=== PATIENT | female | born 1985 | race Hispanic/Latino ===

== ENCOUNTER 2021-08-15 09:46 | Outpatient (CLI) | payer OTHER ==
[2021-08-15 17:26] LABS: SARS-CoV-2 PCR by NAA Not Detected (NotDetected)
== END 2021-08-15 09:47 | disposition home or self-care (01) ==
LOC: CSHLAB 09:46
PROVIDERS: ATTEND Family Medicine
DX: Z01.812 Encounter for preprocedural laboratory examination (principal); Z20.822 Contact with and (suspected) exposure to COVID-19
CPT/HCPCS: U0003; U0005

== ENCOUNTER 2021-08-19 15:03 | Inpatient (IN) | payer MEDICAID, OTHER, SELFPAY ==
[2021-08-19 15:59] VITALS: BMI 35.6
[2021-08-19] MEDS ORDERED: Ondansetron PF 4 MG/2 ML Vial IVP PRN ×2 (16:17→19:24)
[2021-08-19] MEDS ORDERED: Famotidine/PF 20 mg/2ml Vial SLOW IVP PRN (16:17)
[2021-08-19] MEDS ORDERED: hydrALAZINE 20 MG/ML VIAL SLOW IVP PRN (16:17)
[2021-08-19] MEDS ORDERED: Bicitra 30 ML UDCUP PO PRN (16:17)
[2021-08-19] MEDS ORDERED: Promethazine HCl 25 MG/ML VIAL IM PRN ×2 (16:17→19:24)
[2021-08-19] MEDS ORDERED: Lactated Ringer's 1,000 ML IV SCH (16:30)
[2021-08-19] MEDS ORDERED: CEFAZOLIN 2 GM in Premix Bag 1 BAG IVPB SCH (16:30)
[2021-08-19 16:43] LABS: Hemoglobin 11.3 g/dL (12.0-15.5); Mean Corpuscular HGB CONC 34.9 g/dL (32.0-36.0); Mean Corpuscular Hemoglobin 33.1 pg (27.0-33.0); Mean Platelet Volume 11.6 fl (7.4-10.4); Platelet Count 132 10x3/uL (150-450); RBC Distribution Width 13.6 % (11.5-14.5); Red Blood Cell (RBC) Count 3.41 10x6/uL (3.90-5.03); White Blood Cell (WBC) Count 7.4 10x3/uL (3.5-10.5)
[2021-08-19] MEDS ORDERED: Morphine PF 10 MG/10 ML VIAL ONE (17:08)
[2021-08-19] MEDS ORDERED: Phenylephrine 40 MG/NS 250 ML 250 ML ONE (17:08)
[2021-08-19] MEDS ORDERED: Ondansetron PF 4 MG/2 ML Vial ONE (17:08)
[2021-08-19] MEDS ORDERED: Oxytocin 10 UNITS/ML VIAL ONE ×2 (17:08→18:15)
[2021-08-19] MEDS ORDERED: Dexamethasone 4 mg/ml Vial ONE (17:08)
[2021-08-19 17:11] LABS: Syphilis Antibody Nonreactive (Nonreactive); Syphilis Antibody Index 0.07 S/CO (<1.00 Non-Reactive)
[2021-08-19 17:49] LABS: Hep B Surf Ag Non-Reactive S/CO (NonReactive)
[2021-08-19 17:54] LABS: HBSAg Index 0.18 S/CO (0-0.99)
[2021-08-19] MEDS ORDERED: Hydrocerin (Eucerin) Cream 120 gm Jar TOP PRN (19:24)
[2021-08-19] MEDS ORDERED: Ketorolac Tromethamine 30 MG/ML VIAL IVP PRN (19:24)
[2021-08-19] MEDS ORDERED: Fentanyl 100 MCG/2 ML VIAL SLOW IVP PRN (19:24)
[2021-08-19] MEDS ORDERED: Ondansetron HCl/PF 4 MG/2 ML Vial IVP PRN (19:24)
[2021-08-19] MEDS ORDERED: Meperidine HCl/PF 25 MG/ML VIAL SLOW IVP PRN (19:24)
[2021-08-19] MEDS ORDERED: L&D-Morphine 4 MG/ML VIAL SLOW IVP PRN (19:24)
[2021-08-19] MEDS ORDERED: Naloxone HCl 0.4 mg/ml Vial IVP PRN ×2 (19:24)
[2021-08-19] MEDS ORDERED: Promethazine HCl 25 MG SUPP PR PRN (19:24)
[2021-08-19] MEDS ORDERED: Naloxone HCl 0.4 mg/ml Vial IV PRN (19:24)
[2021-08-19] MEDS ORDERED: diphenhydrAMINE 50 MG/ML VIAL IVP PRN (19:24)
[2021-08-19] MEDS ORDERED: Ketorolac Tromethamine 30 MG/ML VIAL IVP SCH (19:30)
[2021-08-19] MEDS ORDERED: Communication Order-Pharmacy FS SCH (19:30)
[2021-08-20] MEDS ORDERED: Promethazine HCl 25 MG/ML VIAL IM PRN (00:21)
[2021-08-20] MEDS ORDERED: Boostrix 0.5 ML (Tdap) VIAL IM ONE (00:21)
[2021-08-20] MEDS ORDERED: Lanolin Ointment 7 GM TUBE TOP PRN (00:21)
[2021-08-20] MEDS ORDERED: diphenhydrAMINE 25 MG CAP PO PRN (00:21)
[2021-08-20] MEDS ORDERED: Bisacodyl 10 MG SUPP PR PRN (00:21)
[2021-08-20] MEDS ORDERED: Ondansetron PF 4 MG/2 ML Vial IVP PRN (00:21)
[2021-08-20] MEDS ORDERED: hydrALAZINE 20 MG/ML VIAL SLOW IVP PRN (00:21)
[2021-08-20] MEDS: Ketorolac Tromethamine 30 MG/ML VIAL IVP SCH ×3 (01:59→14:29)
[2021-08-20] MEDS: Ferrous Sulfate 325 MG TAB PO SCH ×3 (07:22→22:01)
[2021-08-20] MEDS ORDERED: Meperidine HCl/PF 25 MG/ML VIAL IM PRN (07:30)
[2021-08-20 07:37] LABS: Hemoglobin 9.4 g/dL (12.0-15.5); Mean Corpuscular HGB CONC 34.9 g/dL (32.0-36.0); Mean Corpuscular Hemoglobin 33.3 pg (27.0-33.0); Mean Corpuscular Volume 95.4 fl (81.6-98.3); Mean Platelet Volume 12.3 fl (7.4-10.4); Platelet Count 126 10x3/uL (150-450); RBC Distribution Width 13.8 % (11.5-14.5); Red Blood Cell (RBC) Count 2.82 10x6/uL (3.90-5.03); White Blood Cell (WBC) Count 8.1 10x3/uL (3.5-10.5)
[2021-08-20] MEDS: Prenatal Vitamin 1 TAB PO SCH (08:17)
[2021-08-20] MEDS: Docusate Calcium (SURFAK) 240 MG CAP PO SCH ×2 (08:17→22:01)
[2021-08-20] MEDS: Ibuprofen 800 MG TAB PO SCH ×2 (14:35→22:01)
[2021-08-20] MEDS: HYDROcodone/Acetaminophen 5/325 mg Tablet PO PRN ×2 (14:38→20:05)
[2021-08-20] MEDS: Simethicone Chewable 80 MG TAB PO PRN ×2 (16:35→20:06)
[2021-08-21] MEDS: HYDROcodone/Acetaminophen 5/325 mg Tablet PO PRN ×3 (06:05→14:06)
[2021-08-21] MEDS: Simethicone Chewable 80 MG TAB PO PRN ×3 (06:06→14:05)
[2021-08-21] MEDS: Ibuprofen 800 MG TAB PO SCH ×2 (06:06→14:05)
[2021-08-21] MEDS: Prenatal Vitamin 1 TAB PO SCH (08:30)
[2021-08-21] MEDS: Ferrous Sulfate 325 MG TAB PO SCH (08:30)
[2021-08-21] MEDS: Docusate Calcium (SURFAK) 240 MG CAP PO SCH (08:30)
[2021-08-21 11:35] VITALS: BP 103/56; TEMP 97.7
== END 2021-08-21 17:00 | disposition home or self-care (01) | DRG 788 ==
LOC: CSHLD 15:03 → CSHPP 23:30
PROVIDERS: ADMIT Family Medicine; ATTEND Family Medicine
PROC: 10D00Z1 Extraction of Products of Conception, Low, Open Approach (ICD-10-PCS; principal; 2021-08-19)
PROC: 10907ZC Drainage of Amniotic Fluid, Therapeutic from Products of Conception, Via Natural or Artificial Opening (ICD-10-PCS; 2021-08-19)
DX: O34.211 Maternal care for low transverse scar from previous cesarean delivery (principal); O99.62 Diseases of the digestive system complicating childbirth; K66.0 Peritoneal adhesions (postprocedural) (postinfection); Z3A.39 39 weeks gestation of pregnancy; Z37.0 Single live birth
CPT/HCPCS: 36415; 51702; 85027; 86780; 86850; 86900; 86901; 87340; J0690; J1100; J1885; J2274; J2405; J2550; J2590; S0028